=== PATIENT | male | born 1980 | race Hispanic/Latino ===

== ENCOUNTER 2024-01-25 10:44 | Outpatient (RCR) | payer MEDICARE | END 2024-02-12 | LOC: OT 10:44 | PROVIDERS: ATTEND Physician Assistant | DX: S46.011D Strain of muscle(s) and tendon(s) of the rotator cuff of right shoulder, subsequent encounter (principal); S63.511D Sprain of carpal joint of right wrist, subsequent encounter; M25.511 Pain in right shoulder; R53.1 Weakness ==